=== PATIENT | female | born 1940 ===

== ENCOUNTER 2017-02-08 11:32 | Outpatient (CLI) | payer MEDICARE ==
--- NOTE | 2017-02-08 13:35 | Mammography Report ---
BONE DENSITY STUDY: DEFINITIONS: BMD = Bone Mineral Density T-score = BMD related to mean peak bone mass of young adult (mean expressed in Standard Deviation) Z-score = Age matched BMD expressed in SD World Health Organization (WHO) Diagnostic Criteria Normal T-score > -1 SD Osteopenia T-score between -1 and -2.4 SD Osteoporosis T-score -2.5 SD or below FINDINGS: The weighted average BMD of lumbar spine L1-L4 is 0.964 with a T-score of -1.7. The BMD of L4 is 0.874 with a T. value score of -2.7. The weighted average BMD of the left hip is 0.942 with a T-score of -0.6. IMPRESSION: The patient's average T-score is diagnostic for osteopenia and average relative risk for fracture. Attention to L4 vertebral body. NOTE: BMD is not the only risk factor for fracture; also consider factors such as the patient's age, risk of falling, previous osteoporotic fracture, family history of osteoporotic fractures, current smoker, and low body weight. Alfredo's triangle is a region of interest in femur, predominantly of trabecular bone. It is not a true anatomic site, and [facility] does not recommend its use clinically.
== END 2017-02-08 11:33 | disposition home or self-care (01) ==
LOC: SPVWC 11:32
PROVIDERS: ATTEND Nurse Practitioner Family
DX: M85.88 Other specified disorders of bone density and structure, other site (principal); M13.88 Other specified arthritis, other site; M47.899 Other spondylosis, site unspecified
CPT/HCPCS: 77080